=== PATIENT | male | born 1985 | race Caucasian/White ===

== ENCOUNTER 2020-11-02 12:30 | Outpatient (REF) | payer BC, SELFPAY ==
[2020-11-02 13:25] LABS: COVID-19 Test Negative (Negative)
== END 2020-11-02 12:31 | disposition home or self-care (01) ==
LOC: HO.LAB 12:30
PROVIDERS: Visit Provider Internal Medicine
DX: Z20.828 Contact with and (suspected) exposure to other viral communicable diseases (principal)
CPT/HCPCS: 87635; C9803; U0003